=== PATIENT | male | born 2000 ===

== ENCOUNTER → 2020-10-08 | Outpatient (REF) ==
--- NOTE | 2020-10-08 15:02 | REPPI ---
INDICATION: PAIN. TECHNIQUE: Three views of the lumbosacral spine. FINDINGS: Three views of the lumbosacral spine show no acute fracture, dislocation, or subluxation. The intervertebral disc spaces are symmetric and well maintained. There is no spondylolisthesis. The pedicles are intact bilaterally and there is no destructive osseous lesion. IMPRESSION: Essentially unremarkable lumbosacral spine limited exam. <Electronically signed by Rey Elmore > 10/08/20 [id number]
--- NOTE | 2020-10-08 15:16 | REPPI ---
INDICATION: PAIN. TECHNIQUE: AP and lateral views FINDINGS: The disc spaces are symmetric and relatively well maintained. There is no acute fracture or destructive osseous lesion. Vertebral body height and alignment is within normal limits IMPRESSION: Within normal limits <Electronically signed by Rey Elmore > 10/08/20 [id number]
== END ==
LOC: M PLAIMG 14:22
PROVIDERS: ATTEND Internal Medicine
DX: M54.6 Pain in thoracic spine (principal); M54.5 Low back pain